=== PATIENT | male | born 1945 | race Caucasian/White ===

== ENCOUNTER 2016-11-23 10:58 | Outpatient (RCR) | payer MEDICARE | END 2016-11-24 | LOC: M CR 10:58 | PROVIDERS: ATTEND Internal Medicine Cardiovascular Disease | DX: Z51.89 Encounter for other specified aftercare (principal); Z95.5 Presence of coronary angioplasty implant and graft; I25.10 Atherosclerotic heart disease of native coronary artery without angina pectoris ==

== ENCOUNTER 2016-12-24 13:59 | Outpatient (RCR) | payer MEDICARE | END 2016-12-25 | LOC: M CR 13:59 | PROVIDERS: ATTEND Internal Medicine Cardiovascular Disease | DX: Z51.89 Encounter for other specified aftercare (principal); Z95.5 Presence of coronary angioplasty implant and graft; I25.10 Atherosclerotic heart disease of native coronary artery without angina pectoris ==

== ENCOUNTER 2017-01-23 10:43 | Outpatient (RCR) | payer MEDICARE | END 2017-01-24 | LOC: M CR 10:43 | PROVIDERS: ATTEND Internal Medicine Cardiovascular Disease | DX: I25.10 Atherosclerotic heart disease of native coronary artery without angina pectoris (principal); Z95.5 Presence of coronary angioplasty implant and graft ==

== ENCOUNTER 2017-01-25 09:19 | Outpatient (RCR) | payer MEDICARE | END 2017-02-24 | LOC: M CR 09:19 | DX: Z51.89 Encounter for other specified aftercare (principal); Z95.5 Presence of coronary angioplasty implant and graft; I25.10 Atherosclerotic heart disease of native coronary artery without angina pectoris ==

== ENCOUNTER → 2018-04-23 | Outpatient (CLI) | payer MEDICARE ==
[2018-04-23 11:10] LABS: CREATININE FOR GFR 1.32 MG/DL (0.70-1.30); GLOMERULAR FILTRATION RATE 56.8 (>42)
== END ==
LOC: M LAB 10:11
PROVIDERS: ATTEND Otolaryngology
DX: R22.1 Localized swelling, mass and lump, neck (principal)

== ENCOUNTER → 2018-04-24 | Outpatient (CLI) | payer MEDICARE ==
[~2018-04-24] MED LIST: ISOVUE-370 76% 100ML VIAL (Q9967) As Ordered ONE
--- NOTE | 2018-04-24 09:03 | REP ---
CT NECK WITH CONTRAST: HISTORY: Neck mass. CONTRAST: Isovue-370 75 mL. Two BBs were placed on the right side of the neck at the C3 and C4 levels. Calcifications are present in the left tonsil and right tongue base. This is secondary to previous inflammatory disease. The naso-, samara-, and hypopharynx, larynx, and subglottic trachea are otherwise normal in appearance. The salivary and thyroid glands are normal in size and density. Small lymph nodes less than 1 cm in size are present in the internal jugular chains, posterior triangles and submandibular areas. The patient is status-post stenting of the right common and internal carotid artery. Several small metallic densities are present in the adjacent subcutaneous tissues. Atherosclerotic calcification is present at the left carotid bifurcation. Degenerative change is present in the cervical spine. Bulla and scarring are present in the lung apices. Minimal mucosal thickening is present in the left maxillary sinus. There is thickening and sclerosis of the manc[place] of the left maxillary sinus consistent with chronic sinusitis. IMPRESSION:1. There is no neck mass or adenopathy. 2. The patient is status-post stenting of the right common and internal carotid arteries. The stent is patent. Electronically Signed by Eliu Siegel MD 04/24/2018 09:08 A
== END ==
LOC: M RAD 07:49
PROVIDERS: ATTEND Otolaryngology
DX: R22.1 Localized swelling, mass and lump, neck (principal)
CPT/HCPCS: 70491; Q9967

== ENCOUNTER → 2018-07-19 | Outpatient (REF) ==
[2018-07-19 13:56] LABS: ALBUMIN 3.8 GM/DL (3.2-5.2); ALT/SGPT 16 U/L (12-78); AMYLASE 55 U/L (25-115); BILIRUBIN,TOTAL 0.3 MG/DL (0.2-1.0); BLOOD UREA NITROGEN 17 MG/DL (7-18); CALCIUM LEVEL 9.2 MG/DL (8.8-10.2); CARBON DIOXIDE LEVEL 27 MEQ/L (21-32); CHLORIDE LEVEL 107 MEQ/L (98-107); CREATININE FOR GFR 1.23 MG/DL (0.70-1.30); GLOMERULAR FILTRATION RATE > 60.0 (>42); GLUCOSE, FASTING 89 MG/DL (70-100); LIPASE 119 U/L (73-393); POTASSIUM SERUM 4.3 MEQ/L (3.5-5.1); SODIUM LEVEL 141 MEQ/L (136-145); TOTAL PROTEIN 6.2 GM/DL (6.4-8.2)
== END ==
LOC: M LAB REF 05:38
DX: Z00.00 Encounter for general adult medical examination without abnormal findings (principal)

== ENCOUNTER → 2019-09-05 | Outpatient (CLI) | payer MEDICARE ==
[~2019-09-05] MED LIST changes: +AMLO10TA PO; +COQ-100C5 PO; +CRES20TA2 PO; +ECOT81TA5 PO; +FOLTTAB9 PO; +GABA-845 PO; -ISOVUE-370 76% 100ML VIAL (Q9967) As Ordered ONE; +LACT20EL PO; +LEVA45AE INH; +LIDO5DIS41 TD; +LISI-542 PO; +METO1TAB87 PO; +MULTCAP PO; +NITR4TASL SL; +PLAV1TAB2 PO; +PROTPAK PO; +RANO500T7 PO; +SUCR1TA PO; +XANA0.5T PO; +ZYRTTAB8 PO
== END ==
LOC: M LABSMTC 10:22
PROVIDERS: ATTEND Anesthesiology
DX: Z01.818 Encounter for other preprocedural examination (principal); Z11.59 Encounter for screening for other viral diseases
CPT/HCPCS: C9803; U0003

== ENCOUNTER 2019-09-10 07:32 | Day surgery (SDC) | payer MEDICARE ==
[~2019-09-10] VITALS: Ht 182.9 cm; Wt 96.2 kg
[~2019-09-10 07:32] MED LIST changes: +CIPRODEX OTIC SUSP 7.5ML As Ordered ONE; +LR 1,000 ML IV ONE
[2019-09-10] MEDS ORDERED: dexameTHASONE 4 MG/ML 1ML VIAL (J1100 PER 1MG) As Ordered ONE (09:22)
[2019-09-10] MEDS ORDERED: propofoL 200 MG/20 ML VIAL As Ordered ONE (09:22)
[2019-09-10] MEDS ORDERED: ONDANSETRON 4MG/2ML VIAL As Ordered ONE (09:22)
[2019-09-10] MEDS ORDERED: MIDAZOLAM INJ 2MG/2ML VIAL (J2250 PER 1MG) As Ordered ONE (09:22)
[2019-09-10] MEDS ORDERED: fentaNYL 100 MCG/2 ML INJECTION (J3010) As Ordered ONE (09:22)
[2019-09-10] MEDS ORDERED: LIDOCAINE 2% 100MG/5ML SDV (FOR ANES.) As Ordered ONE (09:22)
[2019-09-10] MEDS ORDERED: oxyCODONE 5MG TAB PO PRN (10:00)
[2019-09-10] MEDS ORDERED: fentaNYL 100 MCG/2 ML INJECTION (J3010) IV PRN (10:00)
[2019-09-10] MEDS ORDERED: ONDANSETRON 4MG/2ML VIAL IV PRN (10:00)
[2019-09-10] MEDS ORDERED: HYDROMORPHONE HCL 0.5 MG/ 0.5 ML SYRINGE (J1170 PER 1) IV PRN (10:00)
[2019-09-10] MEDS ORDERED: LR 1,000 ML IV SCH (10:00)
[2019-09-10 11:10] VITALS: BP 150/60
== END 2019-09-10 11:22 | disposition home or self-care (01) ==
LOC: M SDC 07:32
PROVIDERS: ATTEND Otolaryngology
DX: H65.23 Chronic serous otitis media, bilateral (principal); H69.83 Other specified disorders of Eustachian tube, bilateral; I10 Essential (primary) hypertension; E78.5 Hyperlipidemia, unspecified; I73.9 Peripheral vascular disease, unspecified; F41.9 Anxiety disorder, unspecified; N40.0 Benign prostatic hyperplasia without lower urinary tract symptoms; Z98.61 Coronary angioplasty status; I71.4 Abdominal aortic aneurysm, without rupture; I25.10 Atherosclerotic heart disease of native coronary artery without angina pectoris; K21.9 Gastro-esophageal reflux disease without esophagitis; Z79.02 Long term (current) use of antithrombotics/antiplatelets; Z86.73 Personal history of transient ischemic attack (TIA), and cerebral infarction without residual deficits; Z79.899 Other long term (current) drug therapy; Z88.8 Allergy status to other drugs, medicaments and biological substances; Z91.040 Latex allergy status
CPT/HCPCS: 69436; J1100; J2250; J2405; J3010

== ENCOUNTER → 2019-11-12 | Outpatient (CLI) | payer MEDICARE ==
[~2019-11-12] MED LIST changes: -CIPRODEX OTIC SUSP 7.5ML As Ordered ONE; -LR 1,000 ML IV ONE
--- NOTE | 2019-11-12 11:01 | REPVR ---
PROCEDURE INFORMATION: Exam: CT Temporal Bones Without Contrast. Exam date and time: 11/12/2019 10:42 AM Age: 74 years old Clinical indication: Pain; Other: Otorrhagia TECHNIQUE: Imaging protocol: Computed tomography images of the temporal bones without contrast. Radiation optimization: All CT scans at this facility use at least one of these dose optimization techniques: automated exposure control; mA and/or kV adjustment per patient size (includes targeted exams where dose is matched to clinical indication); or iterative reconstruction. COMPARISON: No relevant prior studies available. FINDINGS: Right inner ear: There is focal dehiscence of the right superior semi circular canal. Right ossicles and middle ear: There is focal soft tissue within the right inferior mesotympanum and hypotympanum. Right middle ear ossicles are intact. Right external auditory canal: Normal. Right facial nerve canal: Normal. Right jugular foramen: No jugular dehiscence. Right carotid canal: No aberrent carotid canal. Right mastoid air cells: Normal. No mastoid effusions. Left inner ear: There is focal dehiscence of the left superior semi circular canal. Left ossicles and middle ear: Normal. The middle ear ossicles are intact. Left external auditory canal: Normal. Left facial nerve canal: Normal. Left jugular foramen: No jugular dehiscence. Left carotid canal: No aberrent carotid canal. Left mastoid air cells: Normal. No mastoid effusions. Soft tissues: Unremarkable. IMPRESSION: 1. Focal soft tissue involving the right inferior mesotympanum and hypotympanum. Cholesteatoma is a consideration in the appropriate clinical setting. 2. Dehiscence of the superior semi circular canals bilaterally. Electronically signed by: Ariela Chauhan On 11/12/2019 11:01:28 AM
== END ==
LOC: M RAD 10:30
PROVIDERS: ATTEND Otolaryngology
DX: H92.21 Otorrhagia, right ear (principal); H83.92 Unspecified disease of left inner ear

== ENCOUNTER 2022-03-23 11:42 | Day surgery (SDC) | payer MEDICARE ==
[~2022-03-23] VITALS: Ht 182.9 cm; Wt 103.4 kg
[~2022-03-23 11:42] MED LIST changes: +CLOP75TA99 PO; +GABA-283 PO; -GABA-845 PO; -LISI-542 PO; +LISI5TAB11 PO; -PLAV1TAB2 PO
[2022-03-23] MEDS ORDERED: LR 1,000 ML IV SCH ×2 (11:50→18:35)
[2022-03-23] MEDS ORDERED: PHENYLEPHRINE 0.5% NASAL SPRAY 15 ML As Ordered ONE (17:30)
[2022-03-23] MEDS ORDERED: EPINEPHrine 1MG/ML INJ 30ML MD-VIAL As Ordered ONE (17:30)
[2022-03-23] MEDS ORDERED: CIPRODEX OTIC SUSP 7.5ML As Ordered ONE ×2 (17:30→19:14)
[2022-03-23] MEDS ORDERED: METHYLENE BLUE 0.5% (5MG/ML) 10 ML AMP (PROVAYBLUE) As Ordered ONE (17:37)
[2022-03-23] MEDS ORDERED: METOCLOPRAMIDE INJ 10MG/2ML VIAL As Ordered ONE (18:02)
[2022-03-23] MEDS ORDERED: ONDANSETRON 4MG 2ML VIAL As Ordered ONE ×2 (18:02→18:36)
[2022-03-23] MEDS ORDERED: LIDOCAINE 2% 100MG/5ML SDV (FOR ANES.) As Ordered ONE (18:02)
[2022-03-23] MEDS ORDERED: propofoL 200 MG/20 ML VIAL As Ordered ONE (18:02)
[2022-03-23] MEDS ORDERED: fentaNYL 100 MCG/2 ML INJECTION As Ordered ONE (18:02)
[2022-03-23] MEDS ORDERED: DESFLURANE 240 ML INHALANT As Ordered ONE (18:02)
[2022-03-23] MEDS ORDERED: SEVOFLURANE INHAL SOLN 250 ML BTL As Ordered ONE (18:02)
[2022-03-23] MEDS ORDERED: MIDAZOLAM INJ 2MG/2ML VIAL As Ordered ONE (18:02)
[2022-03-23] MEDS ORDERED: ACETAMINOPHEN 1000MG 100ML IV BAG As Ordered ONE (18:12)
[2022-03-23] MEDS ORDERED: oxyCODONE 5MG TAB PO PRN (18:35)
[2022-03-23] MEDS ORDERED: ONDANSETRON 4MG 2ML VIAL IV PRN (18:35)
[2022-03-23] MEDS ORDERED: fentaNYL 100 MCG/2 ML INJECTION IV PRN (18:35)
[2022-03-23 19:30] VITALS: BP 172/74
== END 2022-03-23 19:45 | disposition home or self-care (01) ==
LOC: M SDC 11:42
PROVIDERS: ATTEND Otolaryngology
DX: H65.22 Chronic serous otitis media, left ear (principal); H69.82 Other specified disorders of Eustachian tube, left ear; I10 Essential (primary) hypertension; E78.5 Hyperlipidemia, unspecified; I25.10 Atherosclerotic heart disease of native coronary artery without angina pectoris; Z98.61 Coronary angioplasty status; I20.9 Angina pectoris, unspecified; F41.1 Generalized anxiety disorder; Z86.73 Personal history of transient ischemic attack (TIA), and cerebral infarction without residual deficits; Z79.82 Long term (current) use of aspirin; Z79.899 Other long term (current) drug therapy; Z88.8 Allergy status to other drugs, medicaments and biological substances
CPT/HCPCS: 69436; 69799; J0131; J0171; J1100; J2250; J2765; J3010; Q9968

== ENCOUNTER → 2022-12-06 | Outpatient (CLI) | payer MEDICARE ==
[~2022-12-06] MED LIST changes: +ACET325T43 PO; +AMLO1TAB24 PO; +ATIV1TAB7 PO; +COLA100C5 PO; +EZET10TA21 PO; +GABA-1171; -GABA-283 PO; +GABA-284 PO; +OXYC-517; +OXYC-517 PO; +RANO500T2 PO; +TIZA10TA; +TIZA10TA PO; +gabapentin PO
== END ==
LOC: M ONCR 12:25
PROVIDERS: ATTEND General Practice
DX: C79.51 Secondary malignant neoplasm of bone (principal); M79.605 Pain in left leg; Z71.2 Person consulting for explanation of examination or test findings; Z79.02 Long term (current) use of antithrombotics/antiplatelets; Z79.82 Long term (current) use of aspirin; Z79.891 Long term (current) use of opiate analgesic; Z79.899 Other long term (current) drug therapy; Z80.1 Family history of malignant neoplasm of trachea, bronchus and lung; Z80.6 Family history of leukemia; Z80.0 Family history of malignant neoplasm of digestive organs; Z80.8 Family history of malignant neoplasm of other organs or systems; Z87.891 Personal history of nicotine dependence; Z88.8 Allergy status to other drugs, medicaments and biological substances; Z91.040 Latex allergy status

== ENCOUNTER 2022-12-16 09:09 | Observation (INO) | payer MEDICARE ==
[~2022-12-16] VITALS: Ht 182.9 cm; Wt 94.3 kg
[~2022-12-16 09:09] MED LIST changes: -GABA-1171; +GABA-1171 PO
[2022-12-16] MEDS ORDERED: NS 500 ML IV ONE (09:45)
[2022-12-16] MEDS ORDERED: MORPHINE 4 MG/ML 1ML VIAL IV ONE (09:45)
[2022-12-16] MEDS ORDERED: MORPHINE 2 MG/ML 1ML VIAL IV PRN (09:45)
[2022-12-16 10:31] LABS: BASO % 0.1 % (0.0-1.0); EOS # 0.1 10^3/uL (0.0-0.5); EOS % 1.3 % (0.0-3.0); HEMATOCRIT 34.4 % (42.0-52.0); HEMOGLOBIN 10.9 g/dl (13.5-17.5); LYMPH # 0.7 10^3/uL (1.5-5.0); LYMPH % 9.7 % (24.0-44.0); MEAN CORPUSCULAR HEMOGLOBIN 26.5 pg (27.0-33.0); MEAN CORPUSCULAR HGB CONC 31.7 g/dl (32.0-36.5); MEAN CORPUSCULAR VOLUME 83.5 fl (80.0-96.0); MONO # 0.4 10^3/uL (0.0-0.8); MONO % 5.4 % (2.0-8.0); NEUTROPHILS # 5.6 10^3/uL (1.5-8.5); NEUTROPHILS % 83.2 % (36.0-66.0); PLATELET COUNT, AUTOMATED 231 10^3/uL (150-450); RED BLOOD COUNT 4.12 10^6/uL (4.30-6.10); WHITE BLOOD COUNT 6.7 10^3/uL (4.0-10.0)
[2022-12-16] MEDS ORDERED: ISOVUE-370 76% 100ML VIAL As Ordered ONE (10:38)
[2022-12-16 10:43] LABS: INR 1.15; PARTIAL THROMBOPLASTIN TIME 27.2 SECONDS (24.8-34.2); PROTHROMBIN TIME 14.3 SECONDS (12.5-14.5)
[2022-12-16 11:05] LABS: RSV AMPLIFICATION NEGATIVE (NEGATIVE)
[2022-12-16] MEDS ORDERED: MED REC IN PROGRESS XX SCH (12:05)
[2022-12-16] MEDS ORDERED: ACET1TAB37 PO (12:15)
[2022-12-16] MEDS ORDERED: CETI10CH PO (12:59)
[2022-12-16] MEDS ORDERED: SENN-186 PO (12:59)
[2022-12-16] MEDS ORDERED: TIZA10TA PO (12:59)
[2022-12-16] MEDS ORDERED: LORA1TAB23 PO (12:59)
[2022-12-16] MEDS ORDERED: OXYC-517 PO (12:59)
[2022-12-16] MEDS ORDERED: UBIQ200C3 PO (12:59)
[2022-12-16] MEDS ORDERED: HOME MED LIST COMPLETE! XX SCH (13:10)
[2022-12-16] MEDS ORDERED: LORazepam 1 MG TAB PO SCH (13:15)
[2022-12-16] MEDS ORDERED: DOCUSATE SODIUM 100MG CAPSULE PO PRN (13:15)
[2022-12-16] MEDS ORDERED: LEVALBUTEROL HFA 45MCG/ACT 15GM INHALER INH PRN (13:15)
[2022-12-16] MEDS ORDERED: NITROGLYCERIN 0.4MG SUBL TABLET SL PRN (13:15)
[2022-12-16] MEDS ORDERED: SENNA 8.6 MG TAB (SENOKOT) PO PRN (13:15)
[2022-12-16 14:15] VITALS: BP 148/70; TEMP 98.1; O2SAT 93
[2022-12-16] MEDS: MORPHINE 4 MG/ML 1ML VIAL IV PRN ×3 (15:07→22:12)
[2022-12-16] MEDS: GABAPENTIN 100 MG CAP PO SCH ×2 (15:07→20:18)
[2022-12-16] MEDS: ACETAMINOPHEN 650MG ER TAB (TYLENOL ARTHRITIS) PO SCH ×2 (17:09→20:18)
[2022-12-16] MEDS: ALPRAZolam 0.5 MG TAB PO SCH ×2 (17:09→20:18)
[2022-12-16] MEDS ORDERED: CALCIUM CARBONATE 500 MG CHEW U/D PO PRN (18:40)
[2022-12-16 19:19] VITALS: BP 152/68; TEMP 97.8; O2SAT 93
[2022-12-16] MEDS: METOPROLOL TART 25 MG TABLET PO SCH (20:17)
[2022-12-16] MEDS: EZETIMIBE 10MG TABLET (ZETIA) PO SCH (20:17)
[2022-12-16] MEDS: PANTOPRAZOLE 40MG TAB (PROTONIX) PO SCH (20:18)
[2022-12-16] MEDS: RANOLAZINE 500MG ER TAB PO SCH (20:18)
[2022-12-16] MEDS: tiZANidine 4 MG TAB PO SCH (20:18)
[2022-12-16] MEDS: ROSUVASTATIN 10 MG TAB (CRESTOR) PO SCH (20:19)
[2022-12-16 23:28] VITALS: BP 151/67; TEMP 97.7; O2SAT 92
[2022-12-17] VITALS (7 sets, daily range): BP systolic 101–158; BP diastolic 50–62; TEMP 97.2–97.8; O2SAT 92–96
[2022-12-17] MEDS: MORPHINE 4 MG/ML 1ML VIAL IV PRN (03:05)
[2022-12-17 06:08] LABS: HEMATOCRIT 31.3 % (42.0-52.0); HEMOGLOBIN 9.4 g/dl (13.5-17.5); MEAN CORPUSCULAR HEMOGLOBIN 25.8 pg (27.0-33.0); PLATELET COUNT, AUTOMATED 199 10^3/uL (150-450); RED BLOOD COUNT 3.64 10^6/uL (4.30-6.10)
[2022-12-17] MEDS ORDERED: amLODIPine 5 MG TAB PO SCH (09:00)
[2022-12-17] MEDS: RANOLAZINE 500MG ER TAB PO SCH ×2 (09:24→20:39)
[2022-12-17] MEDS: ENOXAPARIN 40MG/0.4ML SYRINGE (J1650 PER 10MG) SC SCH (09:24)
[2022-12-17] MEDS: CLOPIDOGREL 75 MG TAB PO SCH (09:24)
[2022-12-17] MEDS: ASPIRIN 81MG ENTERIC TABLET PO SCH (09:24)
[2022-12-17] MEDS: CETIRIZINE (ZyrTEC) 10 MG TAB PO SCH (09:25)
[2022-12-17] MEDS: ALPRAZolam 0.5 MG TAB PO SCH ×4 (09:25→20:40)
[2022-12-17] MEDS: ACETAMINOPHEN 650MG ER TAB (TYLENOL ARTHRITIS) PO SCH ×4 (09:25→20:39)
[2022-12-17] MEDS: GABAPENTIN 100 MG CAP PO SCH ×3 (09:25→20:40)
[2022-12-17] MEDS: METOPROLOL TART 25 MG TABLET PO SCH ×2 (09:26→20:42)
[2022-12-17] MEDS: PANTOPRAZOLE 40MG TAB (PROTONIX) PO SCH ×2 (09:26→20:40)
[2022-12-17] MEDS: tiZANidine 4 MG TAB PO SCH ×2 (09:26→20:40)
[2022-12-17] MEDS ORDERED: BISACODYL 10MG SUPP PR PRN (10:05)
[2022-12-17 12:12] LABS: BLOOD UREA NITROGEN 13 MG/DL (7-21); CARBON DIOXIDE LEVEL 25 MEQ/L (22-30); CHLORIDE LEVEL 101 MEQ/L (98-107); CREATININE FOR GFR 1.2 MG/DL (0.7-1.5); GLOMERULAR FILTRATION RATE > 60.0 (>42); GLUCOSE, FASTING 108 MG/DL; POTASSIUM SERUM 4.5 MEQ/L (3.6-5.0); SODIUM LEVEL 137 MEQ/L (134-153)
[2022-12-17 12:13] LABS: CALCIUM LEVEL 9.4 MG/DL (8.8-10.2)
[2022-12-17] MEDS: MORPHINE 15 MG SA TAB PO PRN ×2 (16:49→20:42)
[2022-12-17] MEDS: ROSUVASTATIN 10 MG TAB (CRESTOR) PO SCH (20:39)
[2022-12-17] MEDS: EZETIMIBE 10MG TABLET (ZETIA) PO SCH (20:40)
[2022-12-18] MEDS: MORPHINE 15 MG SA TAB PO PRN ×2 (01:51→06:13)
[2022-12-18 04:20] VITALS: BP 145/64; TEMP 97.8; O2SAT 90
[2022-12-18 06:31] LABS: HEMATOCRIT 30.8 % (42.0-52.0); HEMOGLOBIN 9.5 g/dl (13.5-17.5); MEAN CORPUSCULAR HEMOGLOBIN 26.5 pg (27.0-33.0); MEAN CORPUSCULAR HGB CONC 30.8 g/dl (32.0-36.5); MEAN CORPUSCULAR VOLUME 85.8 fl (80.0-96.0); PLATELET COUNT, AUTOMATED 225 10^3/uL (150-450); RED BLOOD COUNT 3.59 10^6/uL (4.30-6.10)
[2022-12-18 06:48] LABS: CALCIUM LEVEL 8.9 MG/DL (8.3-10.6); CREATININE FOR GFR 1.25 MG/DL (0.70-1.30); GLOMERULAR FILTRATION RATE 59.8 (>42); POTASSIUM SERUM 4.5 MMOL/L (3.5-5.1)
[2022-12-18] MEDS ORDERED: BISA10SU PR (07:21)
[2022-12-18] MEDS ORDERED: HYDROMORPHONE HCL 0.5 MG/ 0.5 ML SYRINGE IV PRN (07:50)
[2022-12-18 08:04] VITALS: BP 123/60; TEMP 97.4; O2SAT 92
[2022-12-18 08:22] LABS: BLOOD UREA NITROGEN 15 MG/DL (7-21); CARBON DIOXIDE LEVEL 23 MEQ/L (22-30); CHLORIDE LEVEL 100 MEQ/L (98-107); CREATININE FOR GFR 1.2 MG/DL (0.7-1.5); GLOMERULAR FILTRATION RATE > 60.0 (>42); GLUCOSE, FASTING 106 MG/DL; POTASSIUM SERUM 4.4 MEQ/L (3.6-5.0); SODIUM LEVEL 137 MEQ/L (134-153)
[2022-12-18] MEDS: ENOXAPARIN 40MG/0.4ML SYRINGE (J1650 PER 10MG) SC SCH (08:22)
[2022-12-18] MEDS: CLOPIDOGREL 75 MG TAB PO SCH (08:22)
[2022-12-18] MEDS: PANTOPRAZOLE 40MG TAB (PROTONIX) PO SCH (08:22)
[2022-12-18 08:23] LABS: ALBUMIN 4.1 G/DL (3.9-5.0); ALKALINE PHOSPHATASE 100 U/L (40-129); ALT/SGPT 12 U/L (1-41); AMYLASE 48 U/L (30-110); AST/SGOT 21 U/L (5-40); BILIRUBIN,DIRECT < 0.2 MG/DL (0.1-0.4); BILIRUBIN,TOTAL < 0.7 MG/DL (0.2-1.3); CALCIUM LEVEL 9.5 MG/DL (8.8-10.2); LIPASE 16 U/L (13-60); TOTAL PROTEIN 7.1 G/DL (6.3-8.2)
[2022-12-18] MEDS: GABAPENTIN 100 MG CAP PO SCH (08:23)
[2022-12-18] MEDS: tiZANidine 4 MG TAB PO SCH (08:23)
[2022-12-18] MEDS: CETIRIZINE (ZyrTEC) 10 MG TAB PO SCH (08:23)
[2022-12-18 08:24] VITALS: BP 123/60
[2022-12-18] MEDS: ACETAMINOPHEN 650MG ER TAB (TYLENOL ARTHRITIS) PO SCH ×2 (08:24→13:45)
[2022-12-18] MEDS: RANOLAZINE 500MG ER TAB PO SCH (08:24)
[2022-12-18] MEDS: ASPIRIN 81MG ENTERIC TABLET PO SCH (08:24)
[2022-12-18] MEDS: METOPROLOL TART 25 MG TABLET PO SCH (08:24)
[2022-12-18] MEDS: ALPRAZolam 0.5 MG TAB PO SCH ×2 (08:24→13:45)
[2022-12-18] MEDS ORDERED: amLODIPine 5 MG TAB PO SCH (09:00)
[2022-12-18] MEDS ORDERED: DILA2TAB6 PO (12:02)
[2022-12-21] MEDS ORDERED: DILA2TAB6 PO (15:22)
== END 2022-12-18 14:27 | disposition home or self-care (01) ==
LOC: M ED 09:09 → M ED INP 09:10 → ENRESERV 12:49 → M PCU 13:58
PROVIDERS: ADMIT Internal Medicine; ATTEND Internal Medicine
DX: R10.11 Right upper quadrant pain (principal); C34.12 Malignant neoplasm of upper lobe, left bronchus or lung; U07.1 COVID-19; I25.10 Atherosclerotic heart disease of native coronary artery without angina pectoris; I10 Essential (primary) hypertension; Z86.73 Personal history of transient ischemic attack (TIA), and cerebral infarction without residual deficits; I65.21 Occlusion and stenosis of right carotid artery; K21.9 Gastro-esophageal reflux disease without esophagitis; F41.9 Anxiety disorder, unspecified; J30.2 Other seasonal allergic rhinitis; Z98.61 Coronary angioplasty status; Z79.01 Long term (current) use of anticoagulants; Z79.82 Long term (current) use of aspirin; Z79.899 Other long term (current) drug therapy; Z88.8 Allergy status to other drugs, medicaments and biological substances; Z91.040 Latex allergy status
CPT/HCPCS: 36415; 71045; 71275; 74177; 80047; 80048; 80076; 81001; 82150; 83605; 83690; 84484; 85025; 85027; 85610; 85730; 86850; 86900; 86901; 87040; 87631; 93005; 93041; 93971; 94640; 97161; 97165; 97530; 97535; 99285; G0378; J1170; J1650; Q9967

== ENCOUNTER → 2022-12-19 | Outpatient (CLI) | payer MEDICARE ==
[~2022-12-19] MED LIST changes: +ACET1TAB37 PO; +BISA10SU PR; +CETI10CH PO; +DILA2TAB6 PO; +LORA1TAB23 PO; +PROHANCE 279.3MG/ML 15ML VIAL ONE; +PROHANCE 279.3MG/ML 5ML VIAL ONE; +SENN-186 PO; +UBIQ200C3 PO
== END ==
LOC: M PLAIMG 10:35
PROVIDERS: ATTEND General Practice
DX: C79.51 Secondary malignant neoplasm of bone (principal)
CPT/HCPCS: 70553; A9576

== ENCOUNTER → 2022-12-24 | Outpatient (CLI) | payer MEDICARE ==
[~2022-12-24] MED LIST changes: +DEXA4TA PO; +HYDR4TAB PO; -PROHANCE 279.3MG/ML 15ML VIAL ONE; -PROHANCE 279.3MG/ML 5ML VIAL ONE
== END ==
LOC: M PLARAD 10:32
PROVIDERS: ATTEND Internal Medicine Medical Oncology
DX: C44.92 Squamous cell carcinoma of skin, unspecified (principal)
CPT/HCPCS: 78815; A9552

== ENCOUNTER → 2022-12-25 | Outpatient (RCR) | payer MEDICARE ==
[~2022-12-25] MED LIST changes: -DEXA4TA PO
== END ==
LOC: M ONCR 12-12 13:50
PROVIDERS: ATTEND General Practice
DX: Z51.0 Encounter for antineoplastic radiation therapy (principal); C79.51 Secondary malignant neoplasm of bone

== ENCOUNTER 2023-01-02 14:44 | Outpatient (RCR) | payer MEDICARE ==
[~2023-01-02 14:44] MED LIST changes: +DEXA2TA PO; +DEXA4TA PO
[2023-01-23] MEDS ORDERED: FERRIC CARBOXYMALTOSE INJ 750 MG, VIAL MATE ADAPTER 1 EACH in NS 250 ML IV SCH ×3
[2023-01-23] MEDS ORDERED: DEXA2TA PO (14:07)
== END 2023-01-24 ==
LOC: M ONCR 14:44
PROVIDERS: ATTEND General Practice
DX: Z51.0 Encounter for antineoplastic radiation therapy (principal); C79.51 Secondary malignant neoplasm of bone

== ENCOUNTER → 2023-01-28 | Outpatient (CLI) | payer MEDICARE ==
[~2023-01-28] VITALS: Ht 182.9 cm; Wt 90.0 kg
[~2023-01-28] MED LIST changes: +LIDOCAINE 1% MDV 20ML VIAL As Ordered ONE; +LIDOCAINE W/EPINEPHRINE 1% 20ML VIAL As Ordered ONE; +MIDAZOLAM INJ 2MG/2ML VIAL As Ordered ONE; +NS 1,000 ML IV SCH; +ONDA-84 PO; +PROC10TA5 PO; +ceFAZolin 2 GM/D5W 50 ML IV BAG As Ordered ONE; +ceFAZolin SOD 2 GM in IV 1 EA IV ONE; +fentaNYL 100 MCG/2 ML INJECTION As Ordered ONE
[2023-01-28 07:35] VITALS: TEMP 97.9
[2023-01-28 10:15] VITALS: BP 152/65; O2SAT 98
== END ==
LOC: M IRPRO 07:00
PROVIDERS: ATTEND Internal Medicine Medical Oncology
DX: C34.90 Malignant neoplasm of unspecified part of unspecified bronchus or lung (principal)
CPT/HCPCS: 36571; 99152; 99153; J0690; J2250; J3010

== ENCOUNTER 2023-02-05 10:27 | Inpatient (IN) | payer MEDICARE ==
[~2023-02-05] VITALS: Ht 182.9 cm; Wt 90.0 kg
[~2023-02-05 10:27] MED LIST changes: +LIDO30CR18 TOP; -LIDOCAINE 1% MDV 20ML VIAL As Ordered ONE; -LIDOCAINE W/EPINEPHRINE 1% 20ML VIAL As Ordered ONE; -MIDAZOLAM INJ 2MG/2ML VIAL As Ordered ONE; -NS 1,000 ML IV SCH; -ceFAZolin 2 GM/D5W 50 ML IV BAG As Ordered ONE; -ceFAZolin SOD 2 GM in IV 1 EA IV ONE; -fentaNYL 100 MCG/2 ML INJECTION As Ordered ONE
[2023-02-05] MEDS: NS 1,000 ML IV SCH ×2 (11:35→17:17)
[2023-02-05 11:48] LABS: HEMATOCRIT 32.1 % (42.0-52.0); HEMOGLOBIN 9.8 g/dl (13.5-17.5); LYMPH # 0.1 10^3/uL (1.5-5.0); LYMPH % 42.3 % (24.0-44.0); MEAN CORPUSCULAR HEMOGLOBIN 26.1 pg (27.0-33.0); MEAN CORPUSCULAR HGB CONC 30.5 g/dl (32.0-36.5); MEAN CORPUSCULAR VOLUME 85.6 fl (80.0-96.0); MONO # 0.1 10^3/uL (0.0-0.8); MONO % 42.3 % (2.0-8.0); NEUTROPHILS % 15.4 % (36.0-66.0); RED BLOOD COUNT 3.75 10^6/uL (4.30-6.10)
[2023-02-05 11:51] LABS: BLOOD UREA NITROGEN 27 MG/DL (9-23); CARBON DIOXIDE LEVEL 25 MMOL/L (20-31); CHLORIDE LEVEL 101 MMOL/L (98-107); GLOMERULAR FILTRATION RATE > 60.0 (>42); GLUCOSE, FASTING 149 MG/DL (74-106); MAGNESIUM LEVEL 1.8 MG/DL (1.8-2.4); POTASSIUM SERUM 4.9 MMOL/L (3.5-5.1); SODIUM LEVEL 133 MMOL/L (136-145)
[2023-02-05 11:55] LABS: FREE T4 0.96 NG/DL (0.89-1.76); THYROID STIMULATING HORMONE 0.428 uIU/ML (0.55-4.78)
[2023-02-05 12:10] LABS: PLATELET COUNT, AUTOMATED 70 10^3/uL (150-450); WHITE BLOOD COUNT 0.3 10^3/uL (4.0-10.0)
[2023-02-05 12:57] LABS: ALBUMIN 1.9 G/DL (3.2-5.2); ALKALINE PHOSPHATASE 103 U/L (46-116); ALT/SGPT 21 U/L (7.0-40); AST/SGOT < 8 U/L (<34); BILIRUBIN,DIRECT 1.4 MG/DL (<0.4); BILIRUBIN,TOTAL 1.9 MG/DL (0.3-1.2); TOTAL PROTEIN 4.8 G/DL (5.7-8.2)
[2023-02-05] MEDS ORDERED: NS 2,700 ML in IV 1 EA IV ONE (13:05)
[2023-02-05] MEDS ORDERED: cefTRIAXone SOD 2 GM in D5W MINI-BAG PLUS 50 ML IV ONE (13:05)
[2023-02-05] MEDS ORDERED: IPRATROPIUM 0.5MG/ALBUTEROL 2.5MG INH SOL UD 3ML (DUONEB) NEB PRN (13:25)
[2023-02-05] MEDS ORDERED: MED REC IN PROGRESS XX SCH (13:25)
[2023-02-05] MEDS ORDERED: ACETAMINOPHEN TAB 650MG DOSE (2X325MG) PO PRN (13:25)
[2023-02-05] MEDS ORDERED: ISOVUE-370 76% 100ML VIAL As Ordered ONE (13:31)
[2023-02-05] MEDS ORDERED: HOME MED LIST COMPLETE! XX SCH ×2 (14:20→14:50)
[2023-02-05] MEDS ORDERED: traMADol 50 MG TAB PO PRN (14:25)
[2023-02-05] MEDS ORDERED: GABA-282 PO (14:46)
[2023-02-05] MEDS ORDERED: TRAM50TA2 PO (14:46)
[2023-02-05 15:21] VITALS: BP 159/71; TEMP 98.1; O2SAT 98
[2023-02-05 15:48] LABS: PROCALCITONIN 5.64 ng/ml
[2023-02-05] MEDS ORDERED: SENNA 8.6 MG TAB (SENOKOT) PO PRN (16:25)
[2023-02-05] MEDS ORDERED: LORazepam 1 MG TAB PO SCH (16:25)
[2023-02-05] MEDS ORDERED: DOCUSATE SODIUM 100MG CAPSULE PO PRN (16:25)
[2023-02-05] MEDS ORDERED: PROCHLORPERAZINE 5MG TAB PO PRN (16:25)
[2023-02-05] MEDS ORDERED: ALPRAZolam 0.5 MG TAB PO ONE (16:25)
[2023-02-05] MEDS ORDERED: BISACODYL 10MG SUPP PR PRN (16:25)
[2023-02-05] MEDS ORDERED: oxyCODONE 5MG TAB PO PRN (16:30)
[2023-02-05] MEDS: LACTOBACILLUS ACIDOPHILUS CAP (BACID) PO SCH (17:25)
[2023-02-05] MEDS: IPRATROPIUM 0.5MG/ALBUTEROL 2.5MG INH SOL UD 3ML (DUONEB) NEB SCH ×2 (17:45→22:13)
[2023-02-05] MEDS: DOXYCYCLINE HYCLATE 100 MG in D5W MINI-BAG PLUS 100 ML IV SCH (17:59)
[2023-02-05] MEDS: EZETIMIBE 10MG TABLET (ZETIA) PO SCH (20:14)
[2023-02-05] MEDS: ALPRAZolam 0.5 MG TAB PO SCH (20:14)
[2023-02-05] MEDS: tiZANidine 4 MG TAB PO SCH (20:14)
[2023-02-05] MEDS: GABAPENTIN 300 MG CAP PO SCH (20:14)
[2023-02-05] MEDS: RANOLAZINE 500MG ER TAB PO SCH (20:14)
[2023-02-05] MEDS: CETIRIZINE (ZyrTEC) 5 MG/5 ML UDC DYE FREE PO SCH (20:15)
[2023-02-05] MEDS: FILGRASTIM 480 MCG/0.8 ML SYRINGE **SC ADMINISTRATION ONLY SC SCH (20:39)
[2023-02-05] MEDS ORDERED: METOPROLOL TART 25 MG TABLET PO SCH (21:00)
[2023-02-05 22:00] VITALS: BP 114/61; TEMP 99; O2SAT 94
[2023-02-06] MEDS: NS 1,000 ML IV SCH ×2 (01:07→08:57)
[2023-02-06] MEDS: DOXYCYCLINE HYCLATE 100 MG in D5W MINI-BAG PLUS 100 ML IV SCH (04:24)
[2023-02-06 05:04] VITALS: BP 94/48; TEMP 97.7; O2SAT 93
[2023-02-06 06:06] LABS: EOS % 1.5 % (0.0-3.0); HEMATOCRIT 27.8 % (42.0-52.0); HEMOGLOBIN 8.7 g/dl (13.5-17.5); LYMPH # 0.1 10^3/uL (1.5-5.0); LYMPH % 21.2 % (24.0-44.0); MEAN CORPUSCULAR HEMOGLOBIN 26.5 pg (27.0-33.0); MEAN CORPUSCULAR HGB CONC 31.3 g/dl (32.0-36.5); MEAN CORPUSCULAR VOLUME 84.8 fl (80.0-96.0); MONO # 0.2 10^3/uL (0.0-0.8); MONO % 22.7 % (2.0-8.0); NEUTROPHILS % 54.6 % (36.0-66.0); RED BLOOD COUNT 3.28 10^6/uL (4.30-6.10)
[2023-02-06 06:20] VITALS: BP 108/54
[2023-02-06 06:31] LABS: ALBUMIN 1.6 G/DL (3.2-5.2); ALKALINE PHOSPHATASE 86 U/L (46-116); ALT/SGPT 19 U/L (7.0-40); AST/SGOT 12 U/L (<34); BILIRUBIN,DIRECT 0.8 MG/DL (<0.4); BLOOD UREA NITROGEN 21 MG/DL (9-23); CALCIUM LEVEL 7.9 MG/DL (8.3-10.6); CARBON DIOXIDE LEVEL 23 MMOL/L (20-31); CHLORIDE LEVEL 104 MMOL/L (98-107); CREATININE FOR GFR 0.98 MG/DL (0.70-1.30); GLOMERULAR FILTRATION RATE > 60.0 (>42); GLUCOSE, FASTING 133 MG/DL (74-106); POTASSIUM SERUM 4.4 MMOL/L (3.5-5.1); SODIUM LEVEL 136 MMOL/L (136-145); TOTAL PROTEIN 4.3 G/DL (5.7-8.2)
[2023-02-06 06:33] LABS: WHITE BLOOD COUNT 0.7 10^3/uL (4.0-10.0)
[2023-02-06 06:34] LABS: NEUTROPHILS # 0.4 10^3/uL (1.5-8.5); PLATELET COUNT, AUTOMATED 50 10^3/uL (150-450)
[2023-02-06] MEDS: IPRATROPIUM 0.5MG/ALBUTEROL 2.5MG INH SOL UD 3ML (DUONEB) NEB SCH (08:00)
[2023-02-06] MEDS ORDERED: EMLA CREAM 5GM TUBE (LIDOCAINE/PRILOCAINE) TOP SCH ×2 (09:00)
[2023-02-06] MEDS: METOPROLOL TART 12.5 MG PER 1/2 TAB PO SCH ×2 (09:00→20:19)
[2023-02-06] MEDS ORDERED: amLODIPine 5 MG TAB PO SCH (09:00)
[2023-02-06] MEDS: ALPRAZolam 0.5 MG TAB PO SCH ×4 (09:53→20:18)
[2023-02-06] MEDS: tiZANidine 4 MG TAB PO SCH ×2 (09:53→20:19)
[2023-02-06] MEDS: GABAPENTIN 300 MG CAP PO SCH ×3 (09:53→20:19)
[2023-02-06] MEDS: ASPIRIN 81MG ENTERIC TABLET PO SCH (09:53)
[2023-02-06] MEDS: CLOPIDOGREL 75 MG TAB PO SCH (09:53)
[2023-02-06] MEDS: LACTOBACILLUS ACIDOPHILUS CAP (BACID) PO SCH ×2 (09:53→16:39)
[2023-02-06] MEDS: ROSUVASTATIN 10 MG TAB (CRESTOR) PO SCH (09:53)
[2023-02-06] MEDS: RANOLAZINE 500MG ER TAB PO SCH ×2 (09:53→20:19)
[2023-02-06 09:55] VITALS: BP 103/46
[2023-02-06] MEDS ORDERED: LOPERAMIDE 2 MG CAPLET PO PRN (10:00)
[2023-02-06] MEDS ORDERED: oxyCODONE 5MG TAB PO PRN (10:07)
[2023-02-06] MEDS ORDERED: LEVALBUTEROL HFA 45MCG/ACT 15GM INHALER INH PRN (11:00)
[2023-02-06] MEDS ORDERED: oxyCODONE 5MG TAB PO ONE (11:00)
[2023-02-06] MEDS: DICLOFENAC EPOLAMINE 1.3% PATCH TOP SCH ×2 (11:24→20:17)
[2023-02-06] MEDS: FILGRASTIM 480 MCG/0.8 ML SYRINGE **SC ADMINISTRATION ONLY SC SCH (11:24)
[2023-02-06] MEDS: CETIRIZINE (ZyrTEC) 5 MG/5 ML UDC DYE FREE PO SCH ×2 (11:25→20:19)
[2023-02-06 14:00] VITALS: BP 102/61; TEMP 98.1; O2SAT 95
[2023-02-06] MEDS ORDERED: CALCIUM CARBONATE 500 MG CHEW U/D PO PRN (15:05)
[2023-02-06] MEDS ORDERED: cefTRIAXone SOD 2 GM in D5W MINI-BAG PLUS 50 ML IV SCH (16:00)
[2023-02-06] MEDS: ONDANSETRON 4MG 2ML VIAL IV PRN ×2 (16:43→20:08)
[2023-02-06] MEDS: DOXYCYCLINE HYCLATE 100MG TABLET PO SCH (20:17)
[2023-02-06] MEDS: EZETIMIBE 10MG TABLET (ZETIA) PO SCH (20:17)
[2023-02-06] MEDS: oxyCODONE 5MG TAB PO PRN (20:18)
[2023-02-06 22:00] VITALS: BP 122/59; TEMP 97.7; O2SAT 95
[2023-02-07 06:00] VITALS: BP 123/64; TEMP 98.2; O2SAT 96
[2023-02-07 06:13] LABS: HEMATOCRIT 29.1 % (42.0-52.0); HEMOGLOBIN 9.3 g/dl (13.5-17.5); MEAN CORPUSCULAR HEMOGLOBIN 26.9 pg (27.0-33.0); MEAN CORPUSCULAR VOLUME 84.1 fl (80.0-96.0); RED BLOOD COUNT 3.46 10^6/uL (4.30-6.10); WHITE BLOOD COUNT 3.6 10^3/uL (4.0-10.0)
[2023-02-07 06:35] LABS: PLATELET COUNT, AUTOMATED 61 10^3/uL (150-450)
[2023-02-07 06:43] LABS: ALBUMIN 1.5 G/DL (3.2-5.2); ALKALINE PHOSPHATASE 93 U/L (46-116); ALT/SGPT 74 U/L (7.0-40); AST/SGOT 79 U/L (<34); BILIRUBIN,DIRECT 0.5 MG/DL (<0.4); BILIRUBIN,TOTAL 0.7 MG/DL (0.3-1.2); BLOOD UREA NITROGEN 23 MG/DL (9-23); CALCIUM LEVEL 7.8 MG/DL (8.3-10.6); CARBON DIOXIDE LEVEL 25 MMOL/L (20-31); CHLORIDE LEVEL 103 MMOL/L (98-107); CREATININE FOR GFR 0.94 MG/DL (0.70-1.30); GLOMERULAR FILTRATION RATE > 60.0 (>42); GLUCOSE, FASTING 100 MG/DL (74-106); POTASSIUM SERUM 3.8 MMOL/L (3.5-5.1); SODIUM LEVEL 134 MMOL/L (136-145); TOTAL PROTEIN 4.2 G/DL (5.7-8.2)
[2023-02-07 07:44] LABS: ATYPICAL LYMPH 7 % (0-5); LYMPHOCYTES 1 % (16-44); METAMYELOCYTES 2 % (0-0); MONOCYTES 8 % (0-5); NEUTROPHILS 77 % (28-66); PLATELET ESTIMATE MARKED DECREASE (NORMAL)
[2023-02-07 07:45] LABS: MICROCYTOSIS 2+; POLYCHROMASIA 1+; TOXIC GRANULATION 1+
[2023-02-07 09:06] LABS: HEPATITIS B CORE ANTIBODY IGM NEGATIVE (NEGATIVE); HEPATITIS C VIRUS ABY INDEX 0.05 INDEX (<0.8)
[2023-02-07] MEDS: METOPROLOL TART 12.5 MG PER 1/2 TAB PO SCH (09:51)
[2023-02-07] MEDS: ASPIRIN 81MG ENTERIC TABLET PO SCH (09:52)
[2023-02-07] MEDS: GABAPENTIN 300 MG CAP PO SCH ×3 (09:52→20:46)
[2023-02-07] MEDS: ALPRAZolam 0.5 MG TAB PO SCH ×4 (09:52→20:46)
[2023-02-07] MEDS: CLOPIDOGREL 75 MG TAB PO SCH (09:52)
[2023-02-07] MEDS: RANOLAZINE 500MG ER TAB PO SCH ×2 (09:52→20:46)
[2023-02-07] MEDS: ROSUVASTATIN 10 MG TAB (CRESTOR) PO SCH (09:53)
[2023-02-07] MEDS: LACTOBACILLUS ACIDOPHILUS CAP (BACID) PO SCH ×2 (09:53→16:53)
[2023-02-07] MEDS: CETIRIZINE (ZyrTEC) 5 MG/5 ML UDC DYE FREE PO SCH ×2 (09:54→20:46)
[2023-02-07] MEDS: DOXYCYCLINE HYCLATE 100MG TABLET PO SCH ×2 (09:54→20:45)
[2023-02-07] MEDS: tiZANidine 4 MG TAB PO SCH ×2 (09:54→20:47)
[2023-02-07] MEDS: DICLOFENAC EPOLAMINE 1.3% PATCH TOP SCH ×2 (09:55→20:45)
[2023-02-07] MEDS: CEFDINIR 300 MG CAP (OMNICEF) PO SCH ×2 (09:58→20:44)
[2023-02-07] MEDS ORDERED: ISOVUE-370 76% 100ML VIAL As Ordered ONE (12:46)
[2023-02-07] MEDS ORDERED: GASTROGRAFIN SOLUTION 30ML As Ordered ONE (13:02)
[2023-02-07] MEDS ORDERED: DIGOXIN INJ 0.5 MG/2 ML AMP IV ONE (16:30)
[2023-02-07 17:00] VITALS: BP 93/55; TEMP 97.9; O2SAT 99
[2023-02-07] MEDS ORDERED: DIGOXIN INJ 0.5 MG/2 ML AMP IV STA (19:09)
[2023-02-07] MEDS ORDERED: NS 1,000 ML IV ONE (19:10)
[2023-02-07 20:14] LABS: INR 1.27; PROTHROMBIN TIME 15.5 SECONDS (12.5-14.5)
[2023-02-07] MEDS: EZETIMIBE 10MG TABLET (ZETIA) PO SCH (20:46)
[2023-02-07] MEDS: APIXABAN 5 MG TAB (ELIQUIS) PO SCH (20:47)
[2023-02-07 20:55] VITALS: BP 116/64; TEMP 97.8; O2SAT 98
[2023-02-08] MEDS ORDERED: DIGOXIN INJ 0.5 MG/2 ML AMP IV ONE (01:00)
[2023-02-08 05:06] VITALS: BP 153/73; TEMP 97.6; O2SAT 96
[2023-02-08 06:23] LABS: HEMATOCRIT 29.1 % (42.0-52.0); HEMOGLOBIN 9.2 g/dl (13.5-17.5); MEAN CORPUSCULAR HEMOGLOBIN 26.8 pg (27.0-33.0); MEAN CORPUSCULAR HGB CONC 31.6 g/dl (32.0-36.5); MEAN CORPUSCULAR VOLUME 84.8 fl (80.0-96.0); RED BLOOD COUNT 3.43 10^6/uL (4.30-6.10); WHITE BLOOD COUNT 7.8 10^3/uL (4.0-10.0)
[2023-02-08 06:31] LABS: PLATELET COUNT, AUTOMATED 64 10^3/uL (150-450)
[2023-02-08 06:52] LABS: DIGOXIN LEVEL 0.7 NG/ML (0.8-2.0)
[2023-02-08 06:53] LABS: ALBUMIN 1.6 G/DL (3.2-5.2); ALKALINE PHOSPHATASE 123 U/L (46-116); ALT/SGPT 103 U/L (7.0-40); AST/SGOT 77 U/L (<34); BILIRUBIN,DIRECT 0.4 MG/DL (<0.4); BILIRUBIN,TOTAL 0.6 MG/DL (0.3-1.2); BLOOD UREA NITROGEN 17 MG/DL (9-23); CALCIUM LEVEL 7.7 MG/DL (8.3-10.6); CARBON DIOXIDE LEVEL 26 MMOL/L (20-31); CHLORIDE LEVEL 104 MMOL/L (98-107); CREATININE FOR GFR 0.92 MG/DL (0.70-1.30); GLOMERULAR FILTRATION RATE > 60.0 (>42); GLUCOSE, FASTING 90 MG/DL (74-106); POTASSIUM SERUM 3.7 MMOL/L (3.5-5.1); SODIUM LEVEL 137 MMOL/L (136-145); TOTAL PROTEIN 4.3 G/DL (5.7-8.2)
[2023-02-08 06:59] LABS: ATYPICAL LYMPH 2 % (0-5); BASOPHILS 1 % (0-1); EOSINOPHILS 1 % (0-3); LYMPHOCYTES 4 % (16-44); MONOCYTES 8 % (0-5); NEUTROPHILS 82 % (28-66); PLATELET ESTIMATE MARKED DECREASE (NORMAL)
[2023-02-08 07:00] LABS: MICROCYTOSIS 1+; POLYCHROMASIA 1+
[2023-02-08 07:01] LABS: ANISOCYTOSIS 2+; POIKILOCYTOSIS 1+
[2023-02-08 07:30] VITALS: BP 124/61; TEMP 97.6; O2SAT 96
[2023-02-08] MEDS ORDERED: MIDODRINE 5 MG TAB PO SCH (08:00)
[2023-02-08] MEDS: METOPROLOL TART 25 MG TABLET PO SCH ×4 (08:11→23:29)
[2023-02-08] MEDS: CEFDINIR 300 MG CAP (OMNICEF) PO SCH ×2 (09:35→20:51)
[2023-02-08] MEDS: CETIRIZINE (ZyrTEC) 5 MG/5 ML UDC DYE FREE PO SCH ×2 (09:36→20:51)
[2023-02-08] MEDS: GABAPENTIN 300 MG CAP PO SCH ×3 (09:37→20:51)
[2023-02-08] MEDS: ALPRAZolam 0.5 MG TAB PO SCH ×4 (09:37→20:51)
[2023-02-08] MEDS: LACTOBACILLUS ACIDOPHILUS CAP (BACID) PO SCH ×2 (09:37→17:04)
[2023-02-08] MEDS: ROSUVASTATIN 10 MG TAB (CRESTOR) PO SCH (09:38)
[2023-02-08] MEDS: APIXABAN 5 MG TAB (ELIQUIS) PO SCH ×2 (09:38→20:51)
[2023-02-08] MEDS: DOXYCYCLINE HYCLATE 100MG TABLET PO SCH ×2 (09:38→20:51)
[2023-02-08] MEDS: DICLOFENAC EPOLAMINE 1.3% PATCH TOP SCH ×2 (09:39→20:52)
[2023-02-08] MEDS: RANOLAZINE 500MG ER TAB PO SCH ×2 (09:39→20:51)
[2023-02-08] MEDS: DIGOXIN INJ 0.5 MG/2 ML AMP IV SCH ×2 (09:40→14:12)
[2023-02-08] MEDS ORDERED: BISACODYL 10MG SUPP PR ONE (10:00)
[2023-02-08] MEDS ORDERED: FLEET ENEMA PR PRN (11:40)
[2023-02-08] MEDS: oxyCODONE 5MG TAB PO PRN (17:08)
[2023-02-08 20:30] VITALS: BP 128/54; TEMP 98.1; O2SAT 93
[2023-02-08] MEDS: MOM 30ML SUSPENSION UDC PO SCH (20:51)
[2023-02-08] MEDS: tiZANidine 4 MG TAB PO SCH (20:51)
[2023-02-08] MEDS: EZETIMIBE 10MG TABLET (ZETIA) PO SCH (20:51)
[2023-02-09 05:18] VITALS: BP 137/55
[2023-02-09] MEDS: METOPROLOL TART 25 MG TABLET PO SCH (05:18)
[2023-02-09 05:20] VITALS: BP 137/55; TEMP 99; O2SAT 91
[2023-02-09 06:22] LABS: HEMATOCRIT 30.2 % (42.0-52.0); HEMOGLOBIN 9.1 g/dl (13.5-17.5); MEAN CORPUSCULAR HEMOGLOBIN 26.1 pg (27.0-33.0); MEAN CORPUSCULAR HGB CONC 30.1 g/dl (32.0-36.5); MEAN CORPUSCULAR VOLUME 86.8 fl (80.0-96.0); RED BLOOD COUNT 3.48 10^6/uL (4.30-6.10); WHITE BLOOD COUNT 8.1 10^3/uL (4.0-10.0)
[2023-02-09 06:29] LABS: PLATELET COUNT, AUTOMATED 70 10^3/uL (150-450)
[2023-02-09 06:50] LABS: ALBUMIN 1.7 G/DL (3.2-5.2); ALKALINE PHOSPHATASE 141 U/L (46-116); ALT/SGPT 102 U/L (7.0-40); AST/SGOT 65 U/L (<34); BILIRUBIN,DIRECT 0.4 MG/DL (<0.4); BILIRUBIN,TOTAL 0.5 MG/DL (0.3-1.2); BLOOD UREA NITROGEN 12 MG/DL (9-23); CALCIUM LEVEL 7.7 MG/DL (8.3-10.6); CARBON DIOXIDE LEVEL 26 MMOL/L (20-31); CHLORIDE LEVEL 107 MMOL/L (98-107); CREATININE FOR GFR 0.86 MG/DL (0.70-1.30); DIGOXIN LEVEL 0.8 NG/ML (0.8-2.0); GLOMERULAR FILTRATION RATE > 60.0 (>42); GLUCOSE, FASTING 82 MG/DL (74-106); POTASSIUM SERUM 3.5 MMOL/L (3.5-5.1); SODIUM LEVEL 141 MMOL/L (136-145); TOTAL PROTEIN 4.2 G/DL (5.7-8.2)
[2023-02-09] MEDS ORDERED: SENOKOT S TAB PO ONE (07:20)
[2023-02-09] MEDS ORDERED: MOM 30ML SUSPENSION UDC PO ONE (07:20)
[2023-02-09] MEDS ORDERED: CEFD300CAP PO (07:24)
[2023-02-09] MEDS ORDERED: ATEN50TA2 PO (07:24)
[2023-02-09] MEDS ORDERED: OXYC-517 PO (07:24)
[2023-02-09] MEDS ORDERED: RISATAB3 PO (07:24)
[2023-02-09] MEDS ORDERED: DOXY100T PO (07:24)
[2023-02-09] MEDS ORDERED: ELIQ5TAB PO (07:24)
[2023-02-09] MEDS ORDERED: TRAM50TA2 PO (07:24)
[2023-02-09 07:27] LABS: ATYPICAL LYMPH 2 % (0-5); LYMPHOCYTES 6 % (16-44); METAMYELOCYTES 1 % (0-0); MONOCYTES 7 % (0-5); NEUTROPHILS 83 % (28-66)
[2023-02-09 07:29] LABS: MICROCYTOSIS 1+; PLATELET ESTIMATE DECREASED (NORMAL); POLYCHROMASIA 2+
[2023-02-09 07:30] LABS: DOHLE BODIES 1+
[2023-02-09] MEDS: LACTOBACILLUS ACIDOPHILUS CAP (BACID) PO SCH (08:59)
[2023-02-09] MEDS: DOXYCYCLINE HYCLATE 100MG TABLET PO SCH (08:59)
[2023-02-09] MEDS: CETIRIZINE (ZyrTEC) 5 MG/5 ML UDC DYE FREE PO SCH (08:59)
[2023-02-09] MEDS: ALPRAZolam 0.5 MG TAB PO SCH (08:59)
[2023-02-09] MEDS: MOM 30ML SUSPENSION UDC PO SCH (08:59)
[2023-02-09] MEDS: ROSUVASTATIN 10 MG TAB (CRESTOR) PO SCH (08:59)
[2023-02-09] MEDS: RANOLAZINE 500MG ER TAB PO SCH (08:59)
[2023-02-09] MEDS: GABAPENTIN 300 MG CAP PO SCH (08:59)
[2023-02-09] MEDS: APIXABAN 5 MG TAB (ELIQUIS) PO SCH (08:59)
[2023-02-09] MEDS: DICLOFENAC EPOLAMINE 1.3% PATCH TOP SCH (09:00)
[2023-02-09] MEDS: CEFDINIR 300 MG CAP (OMNICEF) PO SCH (09:01)
[2023-02-09] MEDS ORDERED: MIRA3350 PO (10:13)
[2023-02-09] MEDS ORDERED: SENN-23 PO (10:14)
[2023-02-09] MEDS ORDERED: XARE20TA PO (10:53)
[2023-02-09] MEDS ORDERED: atenoloL 50 MG TAB PO SCH (12:00)
[2023-02-09] MEDS ORDERED: POLYETHYLENE GLYCOL (MIRALAX) 238GM BOTTLE PO ONE (12:00)
== END 2023-02-09 11:50 | disposition home health service (06) | DRG 808 ==
LOC: M ED 10:27 → EDBD 10:27 → M ED INP 13:22 → ENRESERV 14:56 → M MSPAV 15:21
PROVIDERS: ADMIT General Practice; ATTEND General Practice
PROC: B246ZZZ Ultrasonography of Right and Left Heart (ICD-10-PCS; principal; 2023-02-09)
DX: D61.810 Antineoplastic chemotherapy induced pancytopenia (principal); J15.69 Pneumonia due to other Gram-negative bacteria; C79.51 Secondary malignant neoplasm of bone; C34.90 Malignant neoplasm of unspecified part of unspecified bronchus or lung; I69.354 Hemiplegia and hemiparesis following cerebral infarction affecting left non-dominant side; E87.1 Hypo-osmolality and hyponatremia; K56.600 Partial intestinal obstruction, unspecified as to cause; C78.7 Secondary malignant neoplasm of liver and intrahepatic bile duct; J44.0 Chronic obstructive pulmonary disease with (acute) lower respiratory infection; K52.1 Toxic gastroenteritis and colitis; R17 Unspecified jaundice; I25.10 Atherosclerotic heart disease of native coronary artery without angina pectoris; E78.5 Hyperlipidemia, unspecified; I10 Essential (primary) hypertension; T45.1X5A Adverse effect of antineoplastic and immunosuppressive drugs, initial encounter; K21.9 Gastro-esophageal reflux disease without esophagitis; F41.9 Anxiety disorder, unspecified; E86.0 Dehydration; R19.7 Diarrhea, unspecified; G62.9 Polyneuropathy, unspecified; I95.1 Orthostatic hypotension; Z90.49 Acquired absence of other specified parts of digestive tract; Z87.891 Personal history of nicotine dependence; Z79.82 Long term (current) use of aspirin; Z79.899 Other long term (current) drug therapy; Z88.8 Allergy status to other drugs, medicaments and biological substances; Z91.040 Latex allergy status; Z20.822 Contact with and (suspected) exposure to COVID-19

== ENCOUNTER → 2023-02-12 | Outpatient (CLI) | payer MEDICARE ==
[~2023-02-12] MED LIST changes: +ATEN50TA2 PO; +CEFD300CAP PO; +DOXY100T PO; +ELIQ5TAB PO; +GABA-282 PO; +MIRA3350 PO; +RISATAB3 PO; +SENN-23 PO; +TRAM50TA2 PO; +XARE20TA PO
== END ==
LOC: M ONCM 07:28
PROVIDERS: ATTEND Dietitian, Registered
DX: C79.51 Secondary malignant neoplasm of bone (principal); C34.90 Malignant neoplasm of unspecified part of unspecified bronchus or lung; Z68.26 Body mass index [BMI] 26.0-26.9, adult; Z71.3 Dietary counseling and surveillance; Z92.21 Personal history of antineoplastic chemotherapy

== ENCOUNTER → 2023-02-22 | Outpatient (CLI) | payer MEDICARE ==
[~2023-02-22] VITALS: Ht 182.9 cm; Wt 86.3 kg
[2023-02-22 09:41] VITALS: BP 137/68; O2SAT 95
== END ==
LOC: M PAL 02-15 14:43
PROVIDERS: ATTEND Nurse Practitioner Adult Health
DX: C79.51 Secondary malignant neoplasm of bone (principal); C34.12 Malignant neoplasm of upper lobe, left bronchus or lung; G89.3 Neoplasm related pain (acute) (chronic); G89.29 Other chronic pain; K59.00 Constipation, unspecified; R43.8 Other disturbances of smell and taste; R63.0 Anorexia; Z51.5 Encounter for palliative care; Z79.01 Long term (current) use of anticoagulants; Z79.891 Long term (current) use of opiate analgesic; Z79.899 Other long term (current) drug therapy; Z80.0 Family history of malignant neoplasm of digestive organs; Z80.1 Family history of malignant neoplasm of trachea, bronchus and lung; Z80.6 Family history of leukemia; Z80.8 Family history of malignant neoplasm of other organs or systems; Z88.5 Allergy status to narcotic agent; Z88.8 Allergy status to other drugs, medicaments and biological substances; Z87.891 Personal history of nicotine dependence; Z91.040 Latex allergy status; Z92.21 Personal history of antineoplastic chemotherapy; Z92.3 Personal history of irradiation

== ENCOUNTER → 2023-03-19 | Outpatient (CLI) | payer MEDICARE ==
[~2023-03-19] MED LIST changes: +ATRO0.063 INH; +COQ150CH PO; +D3 H10002 PO; +DILT180C28 PO; +FLEC25TA PO; +FOLBTAB3 PO; +MAGN400T33 PO
== END ==
LOC: M ONCM 08:01
PROVIDERS: ATTEND Dietitian, Registered
DX: C79.51 Secondary malignant neoplasm of bone (principal); C34.90 Malignant neoplasm of unspecified part of unspecified bronchus or lung; Z68.24 Body mass index [BMI] 24.0-24.9, adult; Z71.3 Dietary counseling and surveillance

== ENCOUNTER → 2023-03-26 | Outpatient (CLI) | payer MEDICARE ==
[~2023-03-26] VITALS: Ht 182.9 cm; Wt 81.7 kg
[~2023-03-26] MED LIST changes: +NEUR100C PO
[2023-03-26 09:38] VITALS: BP 160/78; O2SAT 98
== END ==
LOC: M PAL 09:14
PROVIDERS: ATTEND Nurse Practitioner Adult Health
DX: C79.51 Secondary malignant neoplasm of bone (principal); C34.12 Malignant neoplasm of upper lobe, left bronchus or lung; I48.91 Unspecified atrial fibrillation; G89.3 Neoplasm related pain (acute) (chronic); G89.29 Other chronic pain; R19.4 Change in bowel habit; R43.8 Other disturbances of smell and taste; R53.83 Other fatigue; R63.0 Anorexia; Z51.5 Encounter for palliative care; Z79.01 Long term (current) use of anticoagulants; Z79.891 Long term (current) use of opiate analgesic; Z79.899 Other long term (current) drug therapy; Z80.0 Family history of malignant neoplasm of digestive organs; Z80.1 Family history of malignant neoplasm of trachea, bronchus and lung; Z80.6 Family history of leukemia; Z80.8 Family history of malignant neoplasm of other organs or systems; Z88.5 Allergy status to narcotic agent; Z88.8 Allergy status to other drugs, medicaments and biological substances; Z87.891 Personal history of nicotine dependence; Z91.040 Latex allergy status; Z92.21 Personal history of antineoplastic chemotherapy; Z92.3 Personal history of irradiation

== ENCOUNTER → 2023-04-08 | Outpatient (CLI) | payer MEDICARE ==
[~2023-04-08] MED LIST changes: +IPRA2IN; +METO25TA4
== END ==
LOC: M RAD 08:50
PROVIDERS: ATTEND Family Medicine
DX: C79.51 Secondary malignant neoplasm of bone (principal); C34.90 Malignant neoplasm of unspecified part of unspecified bronchus or lung

== ENCOUNTER → 2023-04-09 | Outpatient (CLI) | payer MEDICARE | LOC: M ONCM 11:52 | PROVIDERS: ATTEND Dietitian, Registered | DX: C79.51 Secondary malignant neoplasm of bone (principal); C34.90 Malignant neoplasm of unspecified part of unspecified bronchus or lung; Z68.24 Body mass index [BMI] 24.0-24.9, adult; Z71.3 Dietary counseling and surveillance ==

== ENCOUNTER → 2023-04-11 | Outpatient (CLI) | payer MEDICARE ==
[~2023-04-11] MED LIST changes: +OLAN1TAB16 PO
== END ==
LOC: M ONCR 13:53
PROVIDERS: ATTEND General Practice
DX: C79.51 Secondary malignant neoplasm of bone (principal); C34.90 Malignant neoplasm of unspecified part of unspecified bronchus or lung; Z71.2 Person consulting for explanation of examination or test findings; Z79.620 Long term (current) use of immunosuppressive biologic; Z79.899 Other long term (current) drug therapy; Z87.891 Personal history of nicotine dependence; Z88.8 Allergy status to other drugs, medicaments and biological substances; Z91.040 Latex allergy status; Z92.21 Personal history of antineoplastic chemotherapy; Z92.3 Personal history of irradiation

== ENCOUNTER → 2023-05-06 | Outpatient (CLI) | payer MEDICARE ==
[~2023-05-06] MED LIST changes: -METO25TA4; +METO25TA4 PO; +TIZA4CAP PO
== END ==
LOC: M PLARAD 08:42
PROVIDERS: ATTEND Nurse Practitioner
DX: C34.32 Malignant neoplasm of lower lobe, left bronchus or lung (principal)
CPT/HCPCS: 78815; A9552

== ENCOUNTER → 2023-05-07 | Outpatient (CLI) | payer MEDICARE ==
[~2023-05-07] VITALS: Ht 182.9 cm; Wt 84.5 kg
[2023-05-07 09:45] VITALS: BP 123/60; O2SAT 99
== END ==
LOC: M PAL 09:24
PROVIDERS: ATTEND Nurse Practitioner Adult Health
DX: C79.51 Secondary malignant neoplasm of bone (principal); C34.12 Malignant neoplasm of upper lobe, left bronchus or lung; I48.91 Unspecified atrial fibrillation; G89.3 Neoplasm related pain (acute) (chronic); G89.29 Other chronic pain; M79.2 Neuralgia and neuritis, unspecified; K59.00 Constipation, unspecified; Z51.5 Encounter for palliative care; Z79.01 Long term (current) use of anticoagulants; Z79.52 Long term (current) use of systemic steroids; Z79.620 Long term (current) use of immunosuppressive biologic; Z79.891 Long term (current) use of opiate analgesic; Z79.899 Other long term (current) drug therapy; Z80.0 Family history of malignant neoplasm of digestive organs; Z80.1 Family history of malignant neoplasm of trachea, bronchus and lung; Z80.6 Family history of leukemia; Z80.8 Family history of malignant neoplasm of other organs or systems; Z88.5 Allergy status to narcotic agent; Z88.8 Allergy status to other drugs, medicaments and biological substances; Z87.891 Personal history of nicotine dependence; Z91.040 Latex allergy status; Z92.21 Personal history of antineoplastic chemotherapy; Z92.3 Personal history of irradiation; Z86.73 Personal history of transient ischemic attack (TIA), and cerebral infarction without residual deficits

== ENCOUNTER 2023-05-24 08:49 | Outpatient (RCR) | payer MEDICARE ==
[~2023-05-24 08:49] MED LIST changes: +ASPI81TA26 PO; +SLOW142T5 PO; +VITA100T59 PO
== END 2023-05-26 ==
LOC: M ONCR 08:49
PROVIDERS: ATTEND General Practice
DX: Z51.0 Encounter for antineoplastic radiation therapy (principal); C79.51 Secondary malignant neoplasm of bone

== ENCOUNTER 2023-05-27 08:54 | Outpatient (RCR) | payer MEDICARE ==
[2023-06-17] MEDS ORDERED: AMIO200T49 (13:34)
[2023-06-17] MEDS ORDERED: ELIQ5TAB PO (13:34)
[2023-06-27] MEDS ORDERED: MIRA3350 PO (08:12)
[2023-06-27] MEDS ORDERED: GABA-284 PO (08:53)
== END 2023-06-25 ==
LOC: M ONCR 08:54
PROVIDERS: ATTEND General Practice
DX: Z51.0 Encounter for antineoplastic radiation therapy (principal); C79.51 Secondary malignant neoplasm of bone

== ENCOUNTER → 2023-06-27 | Outpatient (CLI) | payer MEDICARE ==
[~2023-06-27] VITALS: Ht 182.9 cm; Wt 83.5 kg
[~2023-06-27] MED LIST changes: +AMIO200T49
[2023-06-27 08:07] VITALS: BP 121/68; O2SAT 98
== END ==
LOC: M PAL 07:41
PROVIDERS: ATTEND Nurse Practitioner Adult Health
DX: G89.3 Neoplasm related pain (acute) (chronic) (principal); G89.29 Other chronic pain; C79.51 Secondary malignant neoplasm of bone; C34.12 Malignant neoplasm of upper lobe, left bronchus or lung; M79.2 Neuralgia and neuritis, unspecified; K59.00 Constipation, unspecified; R63.0 Anorexia; Z51.5 Encounter for palliative care; Z79.01 Long term (current) use of anticoagulants; Z79.52 Long term (current) use of systemic steroids; Z79.620 Long term (current) use of immunosuppressive biologic; Z79.891 Long term (current) use of opiate analgesic; Z79.899 Other long term (current) drug therapy; Z80.0 Family history of malignant neoplasm of digestive organs; Z80.1 Family history of malignant neoplasm of trachea, bronchus and lung; Z80.6 Family history of leukemia; Z80.8 Family history of malignant neoplasm of other organs or systems; Z88.5 Allergy status to narcotic agent; Z88.8 Allergy status to other drugs, medicaments and biological substances; Z87.891 Personal history of nicotine dependence; Z91.040 Latex allergy status; Z92.3 Personal history of irradiation; Z92.21 Personal history of antineoplastic chemotherapy; Z86.73 Personal history of transient ischemic attack (TIA), and cerebral infarction without residual deficits

== ENCOUNTER → 2023-08-02 | Outpatient (CLI) | payer MEDICARE ==
[~2023-08-02] MED LIST changes: -AMIO200T49; +AMIO200T49 PO; +GASTROGRAFIN SOLUTION 30ML As Ordered ONE; -IPRA2IN; +IPRA2IN INH; +ISOVUE-370 76% 100ML VIAL As Ordered ONE
== END ==
LOC: M RAD 10:37
PROVIDERS: ATTEND Internal Medicine Medical Oncology
DX: C34.90 Malignant neoplasm of unspecified part of unspecified bronchus or lung (principal)
CPT/HCPCS: 71260; 74177; Q9963; Q9967

== ENCOUNTER → 2023-08-27 | Outpatient (CLI) | payer MEDICARE ==
[~2023-08-27] MED LIST changes: +ASCO250T20 PO; -GASTROGRAFIN SOLUTION 30ML As Ordered ONE; -ISOVUE-370 76% 100ML VIAL As Ordered ONE; +MAGN100T PO; +ROSU20TA61 PO
== END ==
LOC: M ONCR 08:30
PROVIDERS: ATTEND General Practice
DX: C79.51 Secondary malignant neoplasm of bone (principal); C34.12 Malignant neoplasm of upper lobe, left bronchus or lung; Z79.69 Long term (current) use of other immunomodulators and immunosuppressants; Z79.899 Other long term (current) drug therapy; Z87.891 Personal history of nicotine dependence; Z88.8 Allergy status to other drugs, medicaments and biological substances; Z91.040 Latex allergy status

== ENCOUNTER → 2023-08-27 | Outpatient (CLI) | payer MEDICARE ==
[~2023-08-27] VITALS: Ht 182.9 cm; Wt 89.2 kg
[2023-08-27 08:43] VITALS: BP 120/71; O2SAT 98
== END ==
LOC: M PAL 08:28
PROVIDERS: ATTEND Nurse Practitioner Adult Health
DX: C79.51 Secondary malignant neoplasm of bone (principal); G89.3 Neoplasm related pain (acute) (chronic); G89.29 Other chronic pain; C34.12 Malignant neoplasm of upper lobe, left bronchus or lung; M79.2 Neuralgia and neuritis, unspecified; M25.552 Pain in left hip; K59.00 Constipation, unspecified; R63.0 Anorexia; R53.83 Other fatigue; Z51.5 Encounter for palliative care; Z79.01 Long term (current) use of anticoagulants; Z79.52 Long term (current) use of systemic steroids; Z79.620 Long term (current) use of immunosuppressive biologic; Z79.891 Long term (current) use of opiate analgesic; Z79.899 Other long term (current) drug therapy; Z80.0 Family history of malignant neoplasm of digestive organs; Z80.1 Family history of malignant neoplasm of trachea, bronchus and lung; Z80.6 Family history of leukemia; Z80.8 Family history of malignant neoplasm of other organs or systems; Z88.5 Allergy status to narcotic agent; Z88.6 Allergy status to analgesic agent; Z87.891 Personal history of nicotine dependence; Z91.040 Latex allergy status; Z92.3 Personal history of irradiation; Z92.21 Personal history of antineoplastic chemotherapy; Z86.73 Personal history of transient ischemic attack (TIA), and cerebral infarction without residual deficits; Z95.0 Presence of cardiac pacemaker

== ENCOUNTER → 2023-10-10 | Outpatient (CLI) | payer MEDICARE ==
[~2023-10-10] MED LIST changes: +ACET650T15 PO; +ALPR0.5T3 PO; +ASPE4LIQ TOP; +ASPI81CH33 PO; +BUME1TAB3; +CENT1TAB PO; +CETI-24 PO; +CO Q100C2 PO; +DULO30CA9 PO; +IBUP200C25 PO; +MORP-69 PO; +MORP15TA2 PO; +PANT-23 PO; +PEPC20TA18 PO; +POTA10CA70
== END ==
LOC: M PAL 09:36
PROVIDERS: ATTEND Nurse Practitioner Adult Health
DX: G89.3 Neoplasm related pain (acute) (chronic) (principal); G89.29 Other chronic pain; C79.51 Secondary malignant neoplasm of bone; C34.12 Malignant neoplasm of upper lobe, left bronchus or lung; M79.2 Neuralgia and neuritis, unspecified; M70.72 Other bursitis of hip, left hip; R53.83 Other fatigue; K59.00 Constipation, unspecified; I48.91 Unspecified atrial fibrillation; R63.0 Anorexia; Z51.5 Encounter for palliative care; Z66 Do not resuscitate; Z79.1 Long term (current) use of non-steroidal anti-inflammatories (NSAID); Z79.52 Long term (current) use of systemic steroids; Z79.620 Long term (current) use of immunosuppressive biologic; Z79.891 Long term (current) use of opiate analgesic; Z79.899 Other long term (current) drug therapy; Z80.0 Family history of malignant neoplasm of digestive organs; Z80.1 Family history of malignant neoplasm of trachea, bronchus and lung; Z80.6 Family history of leukemia; Z80.8 Family history of malignant neoplasm of other organs or systems; Z88.5 Allergy status to narcotic agent; Z88.6 Allergy status to analgesic agent; Z87.891 Personal history of nicotine dependence; Z91.040 Latex allergy status; Z92.21 Personal history of antineoplastic chemotherapy; Z92.3 Personal history of irradiation; Z86.73 Personal history of transient ischemic attack (TIA), and cerebral infarction without residual deficits; Z95.0 Presence of cardiac pacemaker

== ENCOUNTER → 2023-11-05 | Outpatient (CLI) | payer MEDICARE ==
[~2023-11-05] MED LIST changes: -ASPI81CH33 PO; +ISOVUE-370 76% 100ML VIAL As Ordered ONE
== END ==
LOC: M RAD 09:58
PROVIDERS: ATTEND Internal Medicine Medical Oncology
DX: C34.90 Malignant neoplasm of unspecified part of unspecified bronchus or lung (principal)
CPT/HCPCS: 71260; 74177; Q9967

== ENCOUNTER 2023-11-06 11:59 | Observation (INO) | payer MEDICARE ==
[~2023-11-06] VITALS: Ht 182.9 cm; Wt 88.0 kg
[~2023-11-06 11:59] MED LIST changes: -ACET650T15 PO; -ALPR0.5T3 PO; -ASPE4LIQ TOP; -CENT1TAB PO; -CETI-24 PO; -CO Q100C2 PO; -DULO30CA9 PO; -ISOVUE-370 76% 100ML VIAL As Ordered ONE; -PANT-23 PO; -PEPC20TA18 PO
[2023-11-06] MEDS ORDERED: ISOVUE-370 76% 100ML VIAL As Ordered ONE (12:26)
[2023-11-06 12:29] LABS: BASO # 0.1 10^3/uL (0.0-0.2); BASO % 0.7 % (0.0-1.0); EOS # 0.3 10^3/uL (0.0-0.5); EOS % 4.1 % (0.0-3.0); HEMOGLOBIN 11.7 g/dl (13.5-17.5); LYMPH # 0.6 10^3/uL (1.5-5.0); LYMPH % 8.8 % (24.0-44.0); MEAN CORPUSCULAR HEMOGLOBIN 32.2 pg (27.0-33.0); MEAN CORPUSCULAR HGB CONC 31.6 g/dl (32.0-36.5); MEAN CORPUSCULAR VOLUME 101.9 fl (80.0-96.0); MONO # 0.7 10^3/uL (0.0-0.8); MONO % 9.2 % (2.0-8.0); NEUTROPHILS # 5.6 10^3/uL (1.5-8.5); NEUTROPHILS % 76.8 % (36.0-66.0); PLATELET COUNT, AUTOMATED 171 10^3/uL (150-450); RED BLOOD COUNT 3.63 10^6/uL (4.30-6.10); WHITE BLOOD COUNT 7.3 10^3/uL (4.0-10.0)
[2023-11-06 12:42] LABS: INR 1.13; PARTIAL THROMBOPLASTIN TIME 34.8 SECONDS (24.8-34.2); PROTHROMBIN TIME 14.2 SECONDS (12.5-14.5)
[2023-11-06 13:28] LABS: BLOOD UREA NITROGEN 11 MG/DL (9-23); CALCIUM LEVEL 8.3 MG/DL (8.3-10.6); CARBON DIOXIDE LEVEL 29 MMOL/L (20-31); CHLORIDE LEVEL 102 MMOL/L (98-107); CREATININE FOR GFR 0.97 MG/DL (0.70-1.30); GLOMERULAR FILTRATION RATE > 60.0 (>42); GLUCOSE, FASTING 103 MG/DL (74-106); POTASSIUM SERUM 3.7 MMOL/L (3.5-5.1); SODIUM LEVEL 135 MMOL/L (136-145)
[2023-11-06] MEDS ORDERED: IPRATROPIUM HFA INHALER 12.9 GRAMS (ATROVENT HFA) INH PRN (13:55)
[2023-11-06] MEDS ORDERED: PROCHLORPERAZINE 5MG TAB PO PRN (13:55)
[2023-11-06] MEDS ORDERED: SENNA 8.6 MG TAB (SENOKOT) PO PRN (13:55)
[2023-11-06] MEDS ORDERED: LIDOCAINE 4% TOPICAL SOLN 50 ML BTL TOP PRN (13:55)
[2023-11-06] MEDS ORDERED: EMLA CREAM 5GM TUBE (LIDOCAINE/PRILOCAINE) TOP SCH (13:55)
[2023-11-06] MEDS ORDERED: ONDANSETRON 4MG TAB PO PRN (13:55)
[2023-11-06] MEDS ORDERED: NITROGLYCERIN 0.4MG SUBL TABLET SL PRN (13:55)
[2023-11-06] MEDS ORDERED: ALPRAZolam 0.5 MG TAB PO PRN (13:55)
[2023-11-06] MEDS ORDERED: PANT-23 PO (14:42)
[2023-11-06] MEDS ORDERED: CETI-24 PO (14:42)
[2023-11-06] MEDS ORDERED: GABA-284 PO ×2 (14:42)
[2023-11-06] MEDS ORDERED: CO Q100C2 PO (14:42)
[2023-11-06] MEDS ORDERED: ALPR0.5T3 PO (14:42)
[2023-11-06] MEDS ORDERED: CENT1TAB PO (14:42)
[2023-11-06] MEDS ORDERED: DULO30CA9 PO (14:42)
[2023-11-06] MEDS ORDERED: ACET650T15 PO (14:42)
[2023-11-06] MEDS ORDERED: ASPE4LIQ TOP (14:42)
[2023-11-06] MEDS ORDERED: PEPC20TA18 PO (14:42)
[2023-11-06] MEDS ORDERED: HOME MED LIST COMPLETE! XX SCH (14:45)
[2023-11-06 15:20] VITALS: BP 149/64; TEMP 97.4; O2SAT 96
[2023-11-06 15:26] LABS: HEMOGLOBIN A1c 5.4 % (4.0-6.0)
[2023-11-06] MEDS: MIRALAX *UNIT DOSE* 17GM PACKET PO SCH (15:47)
[2023-11-06] MEDS: ASPIRIN 81MG CHEW TABLET PO ONE (16:07)
[2023-11-06] MEDS: ACETAMINOPHEN 650MG ER TAB (TYLENOL ARTHRITIS) PO SCH (16:07)
[2023-11-06 20:00] VITALS: BP 149/64; TEMP 97.4; O2SAT 96
[2023-11-06 20:16] VITALS: BP 125/58; TEMP 97.9; O2SAT 97
[2023-11-06] MEDS: ROSUVASTATIN 10 MG TAB (CRESTOR) PO SCH (21:00)
[2023-11-06] MEDS: METOPROLOL TART 12.5 MG PER 1/2 TAB PO SCH (21:00)
[2023-11-06] MEDS: GABAPENTIN 400MG CAP PO SCH (21:00)
[2023-11-06] MEDS: EZETIMIBE 10MG TABLET (ZETIA) PO SCH (21:01)
[2023-11-06] MEDS: FAMOTIDINE 20 MG TAB PO SCH (21:01)
[2023-11-06] MEDS: PANTOPRAZOLE 40MG TAB (PROTONIX) PO SCH (21:01)
[2023-11-06] MEDS: ALPRAZolam 0.5 MG TAB PO SCH (21:01)
[2023-11-06 23:32] VITALS: BP 113/55; TEMP 98.4; O2SAT 93
[2023-11-07 03:38] VITALS: BP 131/61; TEMP 98; O2SAT 95
[2023-11-07] MEDS: oxyCODONE 5MG TAB PO PRN (05:18)
[2023-11-07] MEDS: GABAPENTIN 400MG CAP PO SCH (05:53)
[2023-11-07] MEDS: ACETAMINOPHEN 650MG ER TAB (TYLENOL ARTHRITIS) PO SCH (05:53)
[2023-11-07 06:03] LABS: HEMATOCRIT 36.8 % (42.0-52.0); HEMOGLOBIN 11.8 g/dl (13.5-17.5); MEAN CORPUSCULAR HEMOGLOBIN 32.6 pg (27.0-33.0); MEAN CORPUSCULAR HGB CONC 32.1 g/dl (32.0-36.5); MEAN CORPUSCULAR VOLUME 101.7 fl (80.0-96.0); PLATELET COUNT, AUTOMATED 188 10^3/uL (150-450); RED BLOOD COUNT 3.62 10^6/uL (4.30-6.10); WHITE BLOOD COUNT 7.3 10^3/uL (4.0-10.0)
[2023-11-07 06:26] LABS: BLOOD UREA NITROGEN 11 MG/DL (9-23); CALCIUM LEVEL 8.7 MG/DL (8.3-10.6); CARBON DIOXIDE LEVEL 27 MMOL/L (20-31); CHLORIDE LEVEL 103 MMOL/L (98-107); CHOLESTEROL LEVEL 92 MG/DL (<200); CHOLESTEROL RISK RATIO 3.03 (<5); CREATININE FOR GFR 0.99 MG/DL (0.70-1.30); GLOMERULAR FILTRATION RATE > 60.0 (>42); GLUCOSE, FASTING 94 MG/DL (74-106); HDL CHOLESTEROL 30.3 MG/DL (>40); LDL CHOLESTEROL 37.3 MG/DL (<100); NON-HDL-C 61.7 MG/DL; POTASSIUM SERUM 4.2 MMOL/L (3.5-5.1); SODIUM LEVEL 136 MMOL/L (136-145); TRIGLYCERIDES LEVEL 122 MG/DL (<150)
[2023-11-07 07:40] VITALS: BP 122/59; TEMP 97; O2SAT 95
[2023-11-07] MEDS: AMIODARONE 200 MG TAB (PACERONE) PO SCH (09:11)
[2023-11-07] MEDS: DULoxetine 30MG CAPSULE (CYMBALTA) PO SCH (09:11)
[2023-11-07] MEDS: ASPIRIN 81MG CHEW TABLET PO SCH (09:11)
[2023-11-07 09:12] VITALS: BP 122/59
[2023-11-07] MEDS: CETIRIZINE (ZyrTEC) 10 MG TAB PO SCH (09:12)
[2023-11-07] MEDS: MULTIVITAMINS/MINERALS THERAP 1 TAB PO SCH (09:12)
[2023-11-07] MEDS ORDERED: ASPI81CH33 PO (11:44)
[2023-11-07 12:41] VITALS: BP 140/63; TEMP 97.4; O2SAT 96
[2023-11-11] MEDS ORDERED: DEXA4TA PO (12:02)
== END 2023-11-07 13:27 | disposition home or self-care (01) ==
LOC: M ED 11:59 → EDBD 11:59 → M ED INP 12:00 → M PCU 15:19
PROVIDERS: ADMIT Internal Medicine; ATTEND Internal Medicine
DX: G45.9 Transient cerebral ischemic attack, unspecified (principal); K21.9 Gastro-esophageal reflux disease without esophagitis; I48.91 Unspecified atrial fibrillation; F41.9 Anxiety disorder, unspecified; I25.10 Atherosclerotic heart disease of native coronary artery without angina pectoris; F39 Unspecified mood [affective] disorder; Z79.82 Long term (current) use of aspirin; Z79.899 Other long term (current) drug therapy; Z91.040 Latex allergy status; Z88.8 Allergy status to other drugs, medicaments and biological substances; C34.90 Malignant neoplasm of unspecified part of unspecified bronchus or lung; C79.51 Secondary malignant neoplasm of bone; C78.7 Secondary malignant neoplasm of liver and intrahepatic bile duct
CPT/HCPCS: 36415; 70450; 70496; 70498; 71045; 80047; 80048; 80061; 81001; 83036; 85025; 85027; 85610; 85730; 93005; 93041; 94760; 97116; 97161; 97165; 99285; G0378; Q9967

== ENCOUNTER → 2023-11-11 | Outpatient (CLI) | payer MEDICARE ==
[~2023-11-11] MED LIST changes: +ACET650T15 PO; +ALPR0.5T3 PO; +ASPE4LIQ TOP; +ASPI81CH33 PO; +CENT1TAB PO; +CETI-24 PO; +CO Q100C2 PO; +DULO30CA9 PO; +OXYC-673 PO; +PANT-23 PO; +PEPC20TA18 PO
== END ==
LOC: M RAD 09:40
PROVIDERS: ATTEND Internal Medicine Medical Oncology
DX: M25.552 Pain in left hip (principal); W19.XXXA Unspecified fall, initial encounter

== ENCOUNTER → 2023-12-31 | Outpatient (CLI) | payer MEDICARE ==
[~2023-12-31] VITALS: Ht 182.9 cm; Wt 80.9 kg
[~2023-12-31] MED LIST changes: +AMOX875T2; +ELIQ5TAB; +GABA-1172 PO; -GABA-282 PO; +MACR100C43 PO; -ROSU20TA61 PO; +ROSU20TA86 PO; +XTAM9CAP PO
[2023-12-31 14:41] VITALS: BP 135/58; O2SAT 92
== END ==
LOC: M PAL 14:12
PROVIDERS: ATTEND Nurse Practitioner Adult Health
DX: G89.3 Neoplasm related pain (acute) (chronic) (principal); G89.29 Other chronic pain; G62.9 Polyneuropathy, unspecified; C79.51 Secondary malignant neoplasm of bone; C34.12 Malignant neoplasm of upper lobe, left bronchus or lung; M70.72 Other bursitis of hip, left hip; K59.00 Constipation, unspecified; I48.91 Unspecified atrial fibrillation; R63.0 Anorexia; Z51.5 Encounter for palliative care; Z66 Do not resuscitate; Z79.01 Long term (current) use of anticoagulants; Z79.52 Long term (current) use of systemic steroids; Z79.620 Long term (current) use of immunosuppressive biologic; Z79.891 Long term (current) use of opiate analgesic; Z79.899 Other long term (current) drug therapy; Z80.0 Family history of malignant neoplasm of digestive organs; Z80.1 Family history of malignant neoplasm of trachea, bronchus and lung; Z80.6 Family history of leukemia; Z80.8 Family history of malignant neoplasm of other organs or systems; Z88.5 Allergy status to narcotic agent; Z88.6 Allergy status to analgesic agent; Z87.891 Personal history of nicotine dependence; Z91.040 Latex allergy status; Z92.21 Personal history of antineoplastic chemotherapy; Z92.3 Personal history of irradiation; Z86.73 Personal history of transient ischemic attack (TIA), and cerebral infarction without residual deficits; Z95.0 Presence of cardiac pacemaker; Z87.440 Personal history of urinary (tract) infections

== ENCOUNTER 2024-01-21 11:51 | Outpatient (RCR) | payer MEDICARE ==
[~2024-01-21 11:51] MED LIST changes: +AZIT-12 PO; +LIDO15SO8 PO; +MAGICMW SSP
== END 2024-01-25 ==
LOC: M ONCR 11:51
PROVIDERS: ATTEND General Practice
DX: Z51.0 Encounter for antineoplastic radiation therapy (principal); C79.51 Secondary malignant neoplasm of bone